=== PATIENT | female | born 2005 | race Two or more races ===

== ENCOUNTER 2024-07-11 17:10 | Inpatient (IN) | payer OTHER, MEDICAID, SELFPAY ==
[2024-07-11] VITALS (37 sets, daily range): BP systolic 104–143; BP diastolic 2–96; PULSE 75–130; RESP 16–99; TEMP 36.8–37.1; O2SAT 96–100; BMI 25.4; BMI 25.2
--- NOTE | 2024-07-11 17:08 | PC.NURSE ---
REPORT GIVEN TO OB AND OB NURSE STATED TO SENT PATIENT TO OB.
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
[2024-07-11] MEDS: TERBUTALINE SULF INJ 1 MG/ML VIAL 0.25 MG SC (17:37)
[2024-07-11] MEDS: RINGERS LACTATED 1000 ML 1,000 ML 999 ML IV (17:40)
[2024-07-11 18:01] LABS: Basophils % (Auto) 0 % (0-2.5); Eosinophils % (Auto) 0 % (0-10); Hemoglobin 11.1 g/dL (12.0-16.0); Immature Granulocytes % (Auto) 0 % (0-0); Immature Granulocytes Auto 0.04 Thou/mm3 (0.00-0.00); Lymphocytes # (Auto) 1.6 Thou/mm3 (1.0-5.0); Lymphocytes % (Auto) 15 % (10-50); Mean Corpuscular HGB Conc 33.6 g/dl (31.0-37.0); Mean Corpuscular Hemoglobin 29.4 pg (25.0-35.0); Mean Corpuscular Volume 88 fL (80-100); Monocytes # (Auto) 0.4 Thou/mm3 (0.0-0.8); Monocytes % (Auto) 4 % (0-12); Neutrophils # (Auto) 8.2 Thou/mm3 (1.8-7.7); Neutrophils % (Auto) 80 % (37-80); Nucleated Red Blood Cell % 0 /100 WBC (0); Platelet Count 301 Thou/mm3 (140-440); RDW Standard Deviation 39.8 fL (36.4-46.3); Red Blood Count 3.77 Miln/mm3 (4.00-5.20); White Blood Count 10.3 Thou/mm3 (4.5-11.0)
[2024-07-11 19:41] LABS: Lactate (Lactic Acid) 5.2 mMol/L (0.4-2.0)
[2024-07-11] MEDS: ceFAZolin/D5W 2 GM IV 2 GM/100 ML BAG IV (19:52)
[2024-07-11] MEDS: METOCLOPRAMIDE INJ 5 MG/ML VIAL 2 ML 10 MG IVP (19:54)
[2024-07-11] MEDS: FAMOTIDINE INJ 10 MG/ML VIAL 2 ML 20 MG IV (19:57)
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
[2024-07-11 20:03] LABS: Alanine Aminotransferase < 7 U/L (10-49); Albumin, Serum 3.5 gm/dL (3.5-5.0); Albumin/Globulin Ratio 1.3 (1.2-2.2); Alkaline Phosphatase 136 U/L (46-116); Anion Gap 15 (7-16); Aspartate Amino Transferase 28 U/L (0-34); BUN/Creatinine Ratio 12 Ratio (12-20); Bilirubin,Total 0.6 mg/dL (0.3-1.2); Blood Urea Nitrogen 6 mg/dL (9-23); Calcium 9.1 mg/dL (8.3-10.6); Calcium (Corrected) 9.5 mg/dL (8.5-10.1); Carbon Dioxide 17.8 mMol/L (20.0-31.0); Chloride 105 mMol/L (98-107); Creatinine (Component) 0.5 mg/dL (0.6-1.3); D-Dimer > 3820 ng/mL (<600); Estimated Creatinine Clearance 144.9 mL/min (>60); Globulin 2.7 gm/dL (2.3-3.5); Glucose 95 mg/dL (74-106); Osmolality,Calculated 273 (275-295); Potassium 3.2 mMol/L (3.4-5.1); Sodium 138 mMol/L (136-145); Total Protein 6.2 gm/dL (5.7-8.2); eGFR > 60 See Note
[2024-07-11 20:27] LABS: Partial Thromboplastin Time 23.4 Seconds (22.0-36.0); Prothrombin Time 10.7 Seconds (9.0-12.2)
[2024-07-11 21:14] LABS: Magnesium 1.6 mg/dL (1.6-2.6)
[2024-07-11] MEDS: OXYTOCIN in NS 20 units 20 UNIT/1,000 ML BAG 125 UNIT IV (21:24)
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
[2024-07-11 22:33] LABS: Reflex Lactate? Y
[2024-07-11] MEDS: DEXAMETHASONE SOD PHOS INJ 10 MG/ML VIAL 8 MG IV (22:33)
[2024-07-11 23:22] LABS: Lactic Acid, 3 HR 2.3 mMol/L (0.4-2.0)
[2024-07-12 00:11] LABS: HIV (1&2) Antibody Rapid Non-Reactive
[2024-07-12 00:54] LABS: Hepatitis B Surface Antigen Non Reactive (Non React); Rubella, IgG Antibody Reactive (Immune); Syphilis Nonreactive (Nonreactive)
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
[2024-07-12] MEDS: OXYTOCIN in NS 20 units 20 UNIT/1,000 ML BAG 125 UNIT IV (02:50)
[2024-07-12 05:01] VITALS: BP 106/64; PULSE 70; RESP 16; TEMP 36.8; O2SAT 98
[2024-07-12 07:06] LABS: Lactate (Lactic Acid) 1.5 mMol/L (0.4-2.0)
[2024-07-12 07:08] LABS: Basophils % (Auto) 0 % (0-2.5); Eosinophils % (Auto) 0 % (0-10); Hematocrit 28.7 % (36.0-46.0); Hemoglobin 9.8 g/dL (12.0-16.0); Immature Granulocytes % (Auto) 0 % (0-0); Immature Granulocytes Auto 0.03 Thou/mm3 (0.00-0.00); Lymphocytes % (Auto) 10 % (10-50); Mean Corpuscular HGB Conc 34.1 g/dl (31.0-37.0); Mean Corpuscular Hemoglobin 29.3 pg (25.0-35.0); Mean Corpuscular Volume 86 fL (80-100); Monocytes # (Auto) 0.4 Thou/mm3 (0.0-0.8); Monocytes % (Auto) 4 % (0-12); Neutrophils # (Auto) 9.2 Thou/mm3 (1.8-7.7); Neutrophils % (Auto) 86 % (37-80); Nucleated Red Blood Cell % 0 /100 WBC (0); Platelet Count 269 Thou/mm3 (140-440); RDW Standard Deviation 38.5 fL (36.4-46.3); Red Blood Count 3.35 Miln/mm3 (4.00-5.20); White Blood Count 10.7 Thou/mm3 (4.5-11.0)
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
[2024-07-12 07:50] LABS: Alanine Aminotransferase < 7 U/L (10-49); Albumin, Serum 3.2 gm/dL (3.5-5.0); Albumin/Globulin Ratio 1.3 (1.2-2.2); Alkaline Phosphatase 125 U/L (46-116); Anion Gap 9 (7-16); Aspartate Amino Transferase 26 U/L (0-34); BUN/Creatinine Ratio 13 Ratio (12-20); Bilirubin,Total 0.5 mg/dL (0.3-1.2); Blood Urea Nitrogen < 5 mg/dL (9-23); Calcium 8.5 mg/dL (8.3-10.6); Calcium (Corrected) 9.1 mg/dL (8.5-10.1); Carbon Dioxide 21.8 mMol/L (20.0-31.0); Chloride 104 mMol/L (98-107); Creatinine (Component) 0.4 mg/dL (0.6-1.3); Estimated Creatinine Clearance 181.1 mL/min (>60); Globulin 2.4 gm/dL (2.3-3.5); Glucose 112 mg/dL (74-106); Osmolality,Calculated 268 (275-295); Potassium 3.8 mMol/L (3.4-5.1); Sodium 135 mMol/L (136-145); Total Protein 5.6 gm/dL (5.7-8.2); eGFR > 60 See Note
[2024-07-12 07:59] VITALS: BP 100/63; PULSE 75; RESP 17; TEMP 36.9; O2SAT 98
[2024-07-12] MEDS: IBUPROFEN TAB 400 MG TABLET 800 MG PO ×2 (09:03→19:13)
[2024-07-12 11:18] VITALS: BP 108/64; PULSE 64; RESP 18; TEMP 36.8; O2SAT 97
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
[2024-07-12 15:20] VITALS: BP 99/66; PULSE 95; RESP 18; TEMP 36.8; O2SAT 97
--- NOTE | 2024-07-12 15:41 | PC.SS ---
ONCOLOGY NURSE NAVIGATOR submitted transport request on [facility] for patient to obtain CT scan at the [facility]. Transfer nurse to contact [facility] to coordinate transport.
--- NOTE | 2024-07-12 17:29 | PC.NURSE ---
17:27 CNC assisting [facility] coloring checker. Transport is at bedside to parts picker patient for CT without contrast of the brain. Alondra Mckeon ED RN riding along for pt safety. Pt transported to [facility] for CT due to hospital's CT being out of order. Pt will return as soon as imaging is complete.
--- NOTE | 2024-07-12 17:44 | PC.CM ---
2038 Elías GOEL and I assisted in setting up transport to [facility]. Paperwork faxed to [facility] via [employer].
[2024-07-12 19:41] VITALS: BP 96/62; PULSE 90; RESP 18; TEMP 36.6; O2SAT 96
[2024-07-12 23:26] VITALS: BP 94/58; PULSE 86; RESP 17; TEMP 36.7; O2SAT 95
[2024-07-13 04:05] VITALS: BP 100/65; PULSE 83; RESP 16; TEMP 36.9; O2SAT 97
[2024-07-13 07:43] VITALS: BP 103/65; PULSE 81; RESP 16; TEMP 36.7; O2SAT 98
[2024-07-13] MEDS: IBUPROFEN TAB 400 MG TABLET 800 MG PO (07:49)
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
== END 2024-07-13 09:26 | disposition home or self-care (01) | DRG 787 ==
LOC: S4SX 19:51 → S4NX 20:19
PROVIDERS: Student in an Organized Health Care Education/Training Program; Admitting Provider Obstetrics & Gynecology; PCP Pediatrics; Visit Provider Student in an Organized Health Care Education/Training Program
PROC: 10D00Z1 Extraction of Products of Conception, Low, Open Approach (ICD-10-PCS; CPT 59514; principal; 2024-07-11 19:30)
DX: O76 Abnormality in fetal heart rate and rhythm complicating labor and delivery (principal); E87.20 Acidosis, unspecified; G93.40 Encephalopathy, unspecified; O99.354 Diseases of the nervous system complicating childbirth; O9A.22 Injury, poisoning and certain other consequences of external causes complicating childbirth; O69.81X0 Labor and delivery complicated by cord around neck, without compression, not applicable or unspecified; Z3A.31 31 weeks gestation of pregnancy; Z37.0 Single live birth; O99.284 Endocrine, nutritional and metabolic diseases complicating childbirth; E87.6 Hypokalemia; S30.1XXA Contusion of abdominal wall, initial encounter; S50.812A Abrasion of left forearm, initial encounter; V89.2XXA Person injured in unspecified motor-vehicle accident, traffic, initial encounter; Y92.410 Unspecified street and highway as the place of occurrence of the external cause
CPT/HCPCS: 36415; 59025; 59409; 70450; 76805; 80053; 83605; 83735; 85025; 85379; 85610; 85730; 86703; 86762; 86780; 86850; 86900; 86901; 87340; 94762; A4649; J0689; J1100; J2210; J2274; J2371; J2405; J2590; J2765; J3010; J3105; J3490; J7120; A9270; J2270